=== PATIENT | female | born 1950 | race Hispanic/Latino ===

== ENCOUNTER 2016-05-29 18:19 | Observation (INO) | payer OTHER ==
[~2016-05-29] VITALS: Ht 154.9 cm; Wt 65.4 kg
[~2016-05-29 18:19] MED LIST: ASCORBIC ACID500 M3 PO; BISAC-EVAC10 MG PR; DOCUSATE SODIU100 MG PO; MILK OF MAGNESI10 ML PO; NAPROXEN500 MG PO; OXYCODONE HCL5 MG PO; PREMPRO PO; SENNA8.6 MG PO; VITAMIN B12 100MCG PO
[2016-05-29 19:26] LABS: HEMATOCRIT 33.6 % (36.0-46.0); MCH 26.9 PG (29.0-34.0); MCHC 35.7 G/DL (30.0-36.0); MCV 75.3 FL (83-99); MEAN PLAT.VOLUME 9.5 uM^3 (9.5-12.4); PLATELET COUNT 347 K/uL (156-360); RBC DIS.WIDTH-SD 37.6 % (39-53); RED BLOOD COUNT 4.46 M/uL (3.80-5.20); WHITE BLOOD COUNT 7.8 K/uL (4.1-10.2)
[2016-05-29 19:41] LABS: CHLORIDE 104 mEq/L (99-109); POTASSIUM 4.1 mEq/L (3.7-5.4); SODIUM 141 mEq/L (136-147)
[2016-05-29 19:43] LABS: GLUCOSE 91 mg/dL (70-99)
[2016-05-29 19:44] LABS: ANION GAP 9 MEQ/L (2-14)
[2016-05-29 19:47] LABS: GFR ESTIMATE (CALCULATED) > 59 mL/min/
[2016-05-29 19:48] LABS: UREA NITROGEN (BUN) 12 mg/dL (9-23)
[2016-05-29 20:01] LABS: TROP-I INTERPRETATION NEGATIVE; TROPONIN-I < 0.01 ng/mL (0.0-0.30)
[2016-05-29] MEDS ORDERED: METOPROLOL SUCC25 MG PO (20:28)
[2016-05-29] MEDS ORDERED: BIOTIN1000 MICRO PO (20:28)
[2016-05-29] MEDS ORDERED: VITAMIN D31000 UNIT PO (20:28)
[2016-05-29 21:26] LABS: TOTAL BILIRUBIN 0.6 mg/dL (0.0-1.0)
[2016-05-29 21:27] LABS: ALKALINE PHOSPHATASE 118 IU/L (3-129)
[2016-05-29 21:29] LABS: DIRECT BILIRUBIN 0.2 mg/dL (0.0-0.3)
[2016-05-29 21:30] LABS: LIPASE 34 U/L (1.0-51.0)
[2016-05-29 22:38] VITALS: BP 128/61
[2016-05-30 02:05] LABS: TROP-I INTERPRETATION NEGATIVE; TROPONIN-I < 0.01 ng/mL (0.0-0.30)
[2016-05-30 03:57] VITALS: BP 116/59
[2016-05-30 04:00] VITALS: BP 106/56
[2016-05-30 07:58] VITALS: BP 105/64
[2016-05-30 08:40] LABS: HEMATOCRIT 34.1 % (36.0-46.0); MCV 76.3 FL (83-99); RED BLOOD COUNT 4.47 M/uL (3.80-5.20); WHITE BLOOD COUNT 7.3 K/uL (4.1-10.2)
[2016-05-30 08:41] LABS: MCH 27.1 PG (29.0-34.0); MCHC 35.5 G/DL (30.0-36.0); MEAN PLAT.VOLUME 9.8 uM^3 (9.5-12.4); PLATELET COUNT 335 K/uL (156-360); RBC DIS.WIDTH-SD 38.8 % (39-53)
[2016-05-30 09:14] LABS: TROP-I INTERPRETATION NEGATIVE; TROPONIN-I < 0.01 ng/mL (0.0-0.30)
[2016-05-30] MEDS ORDERED: TYLENOL REGULA325 MG PO (11:09)
[2016-05-30] MEDS ORDERED: ASPIR-LOW81 MG PO (11:09)
== END 2016-05-30 12:14 | disposition home or self-care (01) ==
LOC: EME 18:19 → EDOF 20:45 → 5WEST 20:45
PROVIDERS: Hospitalist
DX: R07.89 Other chest pain (principal); I10 Essential (primary) hypertension; R00.2 Palpitations; D50.9 Iron deficiency anemia, unspecified
CPT/HCPCS: 71020; 71275; 74177; 80048; 80076; 83690; 84484; 85027; 85379; 93005; 99281; 99285; G0378

== ENCOUNTER 2017-04-25 14:16 | Emergency (ER) | payer OTHER ==
[~2017-04-25] VITALS: Ht 157.5 cm; Wt 65.8 kg
[~2017-04-25 14:16] MED LIST changes: +ASPIR-LOW81 MG PO; +BIOTIN1000 MICRO PO; +METOPROLOL SUCC25 MG PO; +TYLENOL REGULA325 MG PO; +VITAMIN D31000 UNIT PO
[2017-04-25 15:14] LABS: HEMOGLOBIN 12.5 G/DL (11.9-15.5); MCH 26.3 PG (29.0-34.0); MCHC 34.7 G/DL (30.0-36.0); MCV 75.8 FL (83-99); PLATELET COUNT 360 K/uL (156-360); RBC DIS.WIDTH-CV 13.3 % (11.8-14.6); RBC DIS.WIDTH-SD 36.4 % (39-53); RED BLOOD COUNT 4.75 M/uL (3.80-5.20); WHITE BLOOD COUNT 10.9 K/uL (4.1-10.2)
[2017-04-25 15:27] LABS: CHLORIDE 105 mEq/L (99-109); POTASSIUM 3.9 mEq/L (3.7-5.4); SODIUM 142 mEq/L (136-147)
[2017-04-25 15:28] LABS: GLUCOSE 94 mg/dL (70-99)
[2017-04-25 15:32] LABS: CREATININE 0.7 mg/dL (0.6-1.3); GFR ESTIMATE (CALCULATED) > 59 mL/min/
[2017-04-25 15:33] LABS: UREA NITROGEN (BUN) 8 mg/dL (9-23)
[2017-04-25 15:40] LABS: TROP-I INTERPRETATION NEGATIVE; TROPONIN-I < 0.01 ng/mL (0.0-0.30)
[2017-04-25 18:56] LABS: TROP-I INTERPRETATION NEGATIVE; TROPONIN-I < 0.01 ng/mL (0.0-0.30)
[2017-04-25] MEDS ORDERED: VENTOLIN HFA18 GM IH (19:03)
[2017-04-25 19:16] VITALS: BP 126/67
== END 2017-04-25 19:18 | disposition home or self-care (01) ==
LOC: EME 14:16
PROVIDERS: Nurse Practitioner Family
DX: J06.9 Acute upper respiratory infection, unspecified (principal); J20.9 Acute bronchitis, unspecified; I10 Essential (primary) hypertension; Z95.1 Presence of aortocoronary bypass graft
CPT/HCPCS: 71046; 80048; 84484; 85027; 87502; 87651 90; 93005; 94640; 99281; 99284